=== PATIENT | female | born 1980 | race Caucasian/White ===

== ENCOUNTER 2021-12-20 08:35 | Emergency (ER) | payer OTHER, BC, SELFPAY ==
[2021-12-20 08:44] VITALS: BP 107/64; PULSE 80; RESP 14; TEMP 36.2; O2SAT 100; BMI 22.3
--- NOTE | 2021-12-20 08:47 | CRLHL7_ITS ---
For Patients: As a result of the Century Cures Act, medical imaging exams and procedure reports are released immediately into your electronic medical record. You may view this report before your referring provider. If you have questions, please contact your health care provider. Indication: Trauma Technique: A total of three views of the left foot were acquired. Comparison: None Findings: Bones: Minimally angulated fracture of the distal left 2nd metatarsal. Non intra-articular. Joint spaces: Unremarkable. Soft tissues: Soft tissue swelling. No foreign body Impression: Left distal 2nd metatarsal fracture. Dictated by Mino Luong MD @ 12/20/2021 9:59:51 AM (Electronically Signed)
--- NOTE | 2021-12-20 09:11 | ED_ITS ---
HPI - Extremity Injury (Lower) General Chief Complaint: Extremity Pain/Injury, Lower Stated Complaint: WC/table fell on left foot Time Seen by Provider: 12/20/21 08:48 History of Present Illness HPI Narrative: 41-year-old woman presenting to the emergency department with complaint of right foot pain after an injury sustained yesterday evening when the edge of the smaller folding table fell onto the top of her foot. At a [employer] meeting; she confirms that the table was not thrown. Foot was rather swollen. There was a very small cut sustained she said and woke to a lot of blood; evidently has been controlled. Admittedly the swelling is less now. She is able to ambulate but it hurts. Did ice it and took an ibuprofen/acetaminophen combination medication and this seemed to help. She thought she should get checked out; I think specifically imaging as opposed to just hobbling around on it if it might be broken. Related Data Home Medications Medication Instructions Recorded Confirmed No Known Home Medications 12/20/21 12/20/21 Allergies Allergy/AdvReac Type Severity Reaction Status Date / Time No Known Drug Allergies Allergy Verified 12/20/21 08:44 PFSH PFS Social History Smoking Status: Never smoker How often do you have a drink containing alcohol: monthly or less AUDIT-C Alcohol total score: 1 Non-prescribed substance use: denies use Exam Narrative: Exam Narrative: Pleasant. Very positive affect; laughs easily. Carefully casually groomed. Breathing easily. Moving all extremities without difficulty. Well-perfused. Skin is warm and dry. Focusing on the foot in question the right: She has a broad gauze taped over the top of the foot. there is broad light bruising over the dorsal aspect of the foot from mid to distal forefoot. She can wiggle all toes without notable difficulty and demonstrates this. There is a 0.5 cm long cut, not gapping, over the proximal 3rd metatarsal. No active bleeding. There are 2 light horizontal abrasions consistent with a table falling crossways on her foot. Mild discomfort to palpation over the metatarsals more centrally. There is no plantar bruising. Const: Vital Signs, click to edit/add: Vital Signs - 24 hr 12/20/21 08:44 Temperature 97.2 F L Pulse Rate [Right Pulse Oximeter] 80 Respiratory Rate 14 Blood Pressure [Ri ght Upper Arm] 107/64 Pulse Oximetry 100 Oxygen Delivery Me thod Room Air Documenting provider has reviewed patient's vital signs: yes Course Course Hospital Course: no interventions needed Vital Signs Vital signs: Initial Vital Signs Temperature 97.2 F L 12/20/21 08:44 Temperature Source Temporal Artery Scan 12/20/21 08:44 Pulse Rate 80 12/20/21 08:44 Respiratory Rate 14 12/20/21 08:44 Blood Pressure 107/64 12/20/21 08:44 Blood Pressure Mean 78 12/20/21 08:44 Blood Pressure Position Sitting 12/20/21 08:44 Pulse Oximetry 100 12/20/21 08:44 Oxygen Delivery Method 12/20/21 08:44 Vital Signs Temperature 97.2 F L 12/20/21 08:44 Pulse Rate 80 12/20/21 08:44 Respiratory Rate 14 12/20/21 08:44 Blood Pressure 107/64 12/20/21 08:44 Pulse Oximetry 100 12/20/21 08:44 Oxygen Delivery Method 12/20/21 08:44 Temperature 97.2 F L 12/20/21 08:44 Pulse Rate 80 12/20/21 08:44 Respiratory Rate 14 12/20/21 08:44 Blood Pressure 107/64 12/20/21 08:44 Pulse Oximetry 100 12/20/21 08:44 Oxygen Delivery Method 12/20/21 08:44 MDM - Extremity Injury (Lower) MDM Narrative Medical decision making narrative: given minimal discomfort demonstrated I would suspect more of hematoma/bruising/periosteal bruising more than fracture though extensive bruising concerning. Images pending. Indeed at the 4th distal metatarsal on my review looks to be a nondisplaced fracture with mild angulation. will need stiff-soled shoe or low cam boot. Contacting Ortho for follow-up. spoke with dr. Pan who reviewed images. confirms adequacy of stiff-soled shoe/sandal. this was placed. able to ambulate, Discharge Plan Discharge Clinical Impression: Metatarsal fracture, Hematoma, Laceration Patient Disposition: Home, Self-Care Condition: Stable Additional Instructions: Continue to ice a couple of times daily over the next few days. I like those maybe older style icing bags to fill with ice and water. Elevate and ibuprofen or acetaminophen for comfort. Can ambulate as tolerated. Wear this sandal when up and about until follow-up. Since you are between primaries and we're already in communication with Orthopedics (specifically Dr. Pan today), please call to them at phone number [phone] to arrange a follow-up within the next 1-2 weeks. Prescriptions: No Action No Known Home Medications Follow Up/Referrals: Provider,Not a Local [Primary Care Provider] - Stand Alone Forms: [employer] Info Instructions
--- NOTE | 2021-12-20 11:04 | ED.NURSE ---
Patient discharged. Ortho post op shoe applied to foot. Will f/u with ortho in 1-2 weeks. All questions answered. Patient left via ambulatory.
== END 2021-12-20 11:04 | disposition home or self-care (01) ==
PROVIDERS: Emergency Provider Family Medicine
DX: S92.344A Nondisplaced fracture of fourth metatarsal bone, right foot, initial encounter for closed fracture (principal); S90.31XA Contusion of right foot, initial encounter; S91.311A Laceration without foreign body, right foot, initial encounter; W22.8XXA Striking against or struck by other objects, initial encounter; Y93.89 Activity, other specified; Y92.59 Other trade areas as the place of occurrence of the external cause; Y99.0 Civilian activity done for income or pay
CPT/HCPCS: 73630; 99283

== ENCOUNTER 2022-05-12 11:28 | Outpatient (CLI) | payer BC, SELFPAY ==
[2022-05-12 14:38] LABS: Albumin* 3.7 g/dL (3.3-5.0); Chloride* 107 mmol/L (96-114); Potassium* 4.5 mmol/L (3.6-5.1); Sodium* 140 mmol/L (135-149)
[2022-05-12 14:40] LABS: Creatinine* 0.7 mg/dL (0.5-1.5); Estimated Glomerular Filt Rate 112 ml/min
[2022-05-12 14:41] LABS: Alanine Aminotransferase* 49 U/L (4-35); Alkaline Phosphatase* 77 U/L (40-150); Aspartate Amino Transferase* 45 U/L (12-35); Bilirubin Total* 0.4 mg/dL (0.1-1.5); Blood Urea Nitrogen* 9 mg/dL (5-24); Calcium* 8.7 mg/dL (8.4-10.6); Carbon Dioxide* 26 mmol/L (20-32); Glucose* 67 mg/dL (60-115)
[2022-05-12 15:17] LABS: Ferritin* 6.5 ng/mL (6.24-137.0)
[2022-05-12 15:50] LABS: Free T4 Free Thyroxine* 0.91 ng/dL (0.70-1.85)
== END 2022-05-12 11:29 | disposition home or self-care (01) ==
PROVIDERS: Visit Provider Family Medicine
DX: R42 Dizziness and giddiness (principal); R79.0 Abnormal level of blood mineral
CPT/HCPCS: 80053; 82728; 84439; 84443